=== PATIENT | female | born 1990 | race Caucasian/White ===

== ENCOUNTER 2018-12-13 15:32 | Observation (INO) | payer MEDICAID ==
[~2018-12-13] VITALS: Ht 152.4 cm; Wt 90.3 kg
== END 2018-12-13 18:10 | disposition home or self-care (01) ==
LOC: 8 EST LDRP 15:32
PROVIDERS: ADMIT Obstetrics & Gynecology; ATTEND Obstetrics & Gynecology
DX: O36.8130 Decreased fetal movements, third trimester, not applicable or unspecified (principal); Z3A.38 38 weeks gestation of pregnancy
CPT/HCPCS: 76815; 76818; 99281; G0378

== ENCOUNTER 2018-12-30 06:50 | Inpatient (IN) | payer MEDICAID ==
[~2018-12-30] VITALS: Ht 167.6 cm; Wt 91.6 kg
[2018-12-30] MEDS ORDERED: LACTATED RINGERS 1,000 ML IV SCH ×2 (07:30→10:00)
[2018-12-30] MEDS ORDERED: CARBOPROST TROMETHAMINE 250 MCG/ML AMPUL IM PRN (07:30)
[2018-12-30] MEDS ORDERED: METHYLERGONOVINE MALEATE 0.2 MG/ML IM PRN ×2 (07:30→17:00)
[2018-12-30] MEDS ORDERED: DEXT 5%/LR + PITOCIN 20UNITS/L 1,000 ML IV SCH ×2 (07:30→17:30)
[2018-12-30] MEDS ORDERED: LIDOCAINE HCL 1% 20ML VIAL (Pyxis) INJ INFIL SCH (07:30)
[2018-12-30] MEDS ORDERED: NALOXONE HCL 0.4 MG/ML 1ML VIAL IM PRN (07:30)
[2018-12-30] MEDS ORDERED: FERR-71 MT (09:41)
[2018-12-30] MEDS ORDERED: PNV1TABL50 MT (09:41)
[2018-12-30] MEDS ORDERED: BUTORPHANOL TARTRATE 2 MG/ML VIAL IV PRN (10:00)
[2018-12-30] MEDS ORDERED: PENICILLIN G POTASSIUM 5 MMU in DEXT 5% WATER 100 ML IV SCH (10:00)
[2018-12-30 12:16] LABS: BASOPHILS % 0.3 % (0.0-2.0); EOSINOPHILS % 0.3 % (0.0-5.0); HEMATOCRIT. 37.1 % (36.0-48.0); HEMOGLOBIN. 12.5 g/dL (12.0-16.0); LYMPHOCYTES % 9.6 % (20.0-50.0); MEAN CORPUSCULAR HEMOGLOBIN 29.9 pg (28.0-32.0); MEAN CORPUSCULAR VOLUME 88.8 fL (81.0-99.0); MEAN PLATELET VOLUME 11.4 fl (7.4-10.4); MONOCYTES % 5.9 % (2.0-8.0); NEUTROPHILS % 83.9 % (40.0-76.0); PLATELET 144 x1000/uL (130-400); RED BLOOD CELL COUNT 4.17 mill/uL (4.2-5.4); RED CELL DISTRIBUTION WIDTH 15.5 % (11.6-14.6)
[2018-12-30 12:46] LABS: INR 0.9; PARTIAL THROMBOPLASTIN TIME 27.2 sec (23.4-31.0); PROTHROMBIN TIME 9.4 sec (9.6-11.0)
[2018-12-30] MEDS ORDERED: MINERAL OIL 30ML BOTTLE PO SCH (13:30)
[2018-12-30] MEDS ORDERED: PENICILLIN G POTASSIUM 2.5 MMU in DEXTROSE 5% WATER 50 ML IV SCH (14:00)
[2018-12-30 14:50] VITALS: BP 103/61
[2018-12-30 15:20] VITALS: BP 108/63
[2018-12-30 16:26] LABS: HEPATITIS B SURFACE ANTIGEN NEGATIVE
[2018-12-30] MEDS ORDERED: ACETAMINOPHEN WITH CODEINE 300/30MG TABLET PO PRN (17:00)
[2018-12-30] MEDS ORDERED: RHO(D) IMMUNE GLOBULIN 300 MCG/SYR IM PRN (17:00)
[2018-12-30] MEDS ORDERED: DIPHENHYDRAMINE 25MG CAPSULE PO PRN (17:00)
[2018-12-30] MEDS ORDERED: BISACODYL 10MG SUPP PR PRN (17:00)
[2018-12-30] MEDS ORDERED: LANOLIN OINT 7GM TUBE TOP PRN (17:00)
[2018-12-30] MEDS ORDERED: IBUPROFEN 800MG TABLET PO PRN (17:00)
[2018-12-30] MEDS ORDERED: IBUPROFEN 400MG TABLET PO PRN (17:00)
[2018-12-30] MEDS: DOCUSATE SODIUM 100MG CAPSULE PO SCH (20:57)
[2018-12-30 22:00] VITALS: BP 108/70
[2018-12-30 22:01] LABS: CLARITY URINE CLOUDY (CLEAR); COLOR URINE AMBER (YELLOW); KETONES URINE 1+ (NEGATIVE); LEUKOCYTE ESTERASE URINE 1+ (NEGATIVE); NITRITE URINE NEGATIVE (NEGATIVE); OCCULT BLOOD URINE 3+ (NEGATIVE); PH URINE 6.5 (4.5-8.0); PROTEIN URINE NEGATIVE (NEGATIVE); UROBILINOGEN URINE 0.2 E.U./dL (0.2-1.0)
[2018-12-30 22:11] LABS: *AMPHETAMINES SCREEN URINE NEGATIVE (NEGATIVE); *BARBITURATES SCREEN URINE NEGATIVE (NEGATIVE); *BENZODIAZEPINES SCREEN URINE NEGATIVE (NEGATIVE); *COCAINE SCREEN URINE NEGATIVE (NEGATIVE); METHADONE URINE SCREEN NEGATIVE (NEGATIVE); OPIATES URINE SCREEN NEGATIVE (NEGATIVE)
[2018-12-30 22:12] LABS: CANNABINOID URINE SCREEN NEGATIVE (NEGATIVE); PHENCYCLIDINE URINE SCREEN NEGATIVE (NEGATIVE)
[2018-12-31 07:33] LABS: BASOPHILS % 0.3 % (0.0-2.0); EOSINOPHILS % 0.2 % (0.0-5.0); HEMATOCRIT. 32.2 % (36.0-48.0); HEMOGLOBIN. 10.8 g/dL (12.0-16.0); LYMPHOCYTES % 12.3 % (20.0-50.0); MEAN CORPUSCULAR HEMOGLOBIN 29.7 pg (28.0-32.0); MEAN CORPUSCULAR VOLUME 88.8 fL (81.0-99.0); MEAN PLATELET VOLUME 10.6 fl (7.4-10.4); MONOCYTES % 6.8 % (2.0-8.0); NEUTROPHILS % 80.4 % (40.0-76.0); PLATELET 133 x1000/uL (130-400); RED BLOOD CELL COUNT 3.63 mill/uL (4.2-5.4); RED CELL DISTRIBUTION WIDTH 15.4 % (11.6-14.6)
[2018-12-31 08:00] VITALS: BP 105/62
[2018-12-31] MEDS: PRENATAL VIT/FE FUMARATE/FA TABLET PO SCH (10:03)
[2018-12-31 16:00] VITALS: BP 99/61
[2018-12-31 20:00] VITALS: BP_SYST 103; BP_SYST 97; BP_DIAS 56; BP_DIAS 65
[2018-12-31] MEDS: DOCUSATE SODIUM 100MG CAPSULE PO SCH (22:11)
[2019-01-01 05:19] VITALS: BP 93/56
[2019-01-01 08:00] VITALS: BP 106/70
[2019-01-01] MEDS: PRENATAL VIT/FE FUMARATE/FA TABLET PO SCH (10:02)
== END 2019-01-01 11:05 | disposition home or self-care (01) | DRG 560 ==
LOC: 8 EST LDRP 06:50 → OBSVTOIN 06:50 → 8 EST LDRP 07:23 → 8EST 14:50
PROVIDERS: ADMIT Obstetrics & Gynecology; ATTEND Obstetrics & Gynecology
PROC: 0W8NXZZ Division of Female Perineum, External Approach (ICD-10-PCS; principal; 2018-12-30)
PROC: 10E0XZZ Delivery of Products of Conception, External Approach (ICD-10-PCS; 2018-12-30)
PROC: 10907ZC Drainage of Amniotic Fluid, Therapeutic from Products of Conception, Via Natural or Artificial Opening (ICD-10-PCS; 2018-12-30)
DX: O48.0 Post-term pregnancy (principal); D62 Acute posthemorrhagic anemia; Z37.0 Single live birth; Z3A.41 41 weeks gestation of pregnancy; O90.81 Anemia of the puerperium
CPT/HCPCS: 36415; 80305; 86592; 86703; 86762; 86850; 86900; 87340; 99281; G0378; J2540; J2590; J3490; J7060; J7120

== ENCOUNTER 2020-03-04 06:29 | Observation (INO) | payer MEDICAID ==
[~2020-03-04] VITALS: Ht 165.1 cm; Wt 88.9 kg
[~2020-03-04 06:29] MED LIST: FERR-71 MT; PNV1TABL50 MT
== END 2020-03-04 09:15 | disposition home or self-care (01) ==
LOC: INTOOBSV 06:29 → 8 EST LDRP 06:29
PROVIDERS: ADMIT Obstetrics & Gynecology; ATTEND Obstetrics & Gynecology
DX: O36.8330 Maternal care for abnormalities of the fetal heart rate or rhythm, third trimester, not applicable or unspecified (principal); O61.9 Failed induction of labor, unspecified; Z3A.39 39 weeks gestation of pregnancy
CPT/HCPCS: 59025; 76805; G0378; 99281

== ENCOUNTER 2020-03-11 07:22 | Inpatient (IN) | payer MEDICAID ==
[~2020-03-11] VITALS: Ht 165.1 cm; Wt 87.5 kg
[2020-03-11] MEDS: LACTATED RINGERS 1,000 ML IV SCH ×3 (08:52→21:37)
[2020-03-11 09:32] LABS: BASOPHILS % 0.4 % (0.0-2.0); EOSINOPHILS % 0.9 % (0.0-5.0); HEMATOCRIT. 37.5 % (36.0-48.0); HEMOGLOBIN. 12.6 g/dL (12.0-16.0); LYMPHOCYTES % 13.6 % (20.0-50.0); MEAN CORPUSCULAR HEMOGLOBIN 29.6 pg (28.0-32.0); MEAN PLATELET VOLUME 10.9 fl (7.4-10.4); MONOCYTES % 6.6 % (2.0-8.0); NEUTROPHILS % 78.5 % (40.0-76.0); PLATELET 146 x1000/uL (130-400); RED BLOOD CELL COUNT 4.26 mill/uL (4.2-5.4); RED CELL DISTRIBUTION WIDTH 15.6 % (11.6-14.6)
[2020-03-11 09:34] LABS: CLARITY URINE CLEAR (CLEAR); COLOR URINE YELLOW (YELLOW); KETONES URINE 1+ (NEGATIVE); LEUKOCYTE ESTERASE URINE 1+ (NEGATIVE); NITRITE URINE NEGATIVE (NEGATIVE); OCCULT BLOOD URINE NEGATIVE (NEGATIVE); PROTEIN URINE NEGATIVE (NEGATIVE); UROBILINOGEN URINE 0.2 E.U./dL (0.2-1.0)
[2020-03-11] MEDS ORDERED: DEXT 5%/LR + PITOCIN 20UNITS/L 1,000 ML IV SCH (09:38)
[2020-03-11] MEDS ORDERED: BUTORPHANOL TARTRATE 2 MG/ML VIAL IV PRN (09:45)
[2020-03-11] MEDS ORDERED: NALOXONE HCL 0.4 MG/ML 1ML VIAL IM PRN (09:45)
[2020-03-11] MEDS ORDERED: LIDOCAINE HCL 1% 20ML VIAL (Pyxis) INJ INFIL SCH (09:45)
[2020-03-11] MEDS ORDERED: MISOPROSTOL 100MCG TABLET VG SCH (09:45)
[2020-03-11] MEDS ORDERED: METHYLERGONOVINE MALEATE 0.2 MG/ML IM PRN (09:45)
[2020-03-11 09:47] LABS: INR 0.9; PARTIAL THROMBOPLASTIN TIME 27.6 sec (23.4-31.0); PROTHROMBIN TIME 9.8 sec (9.6-11.0)
[2020-03-11 09:52] LABS: *AMPHETAMINES SCREEN URINE NEGATIVE (NEGATIVE); *BARBITURATES SCREEN URINE NEGATIVE (NEGATIVE); *BENZODIAZEPINES SCREEN URINE NEGATIVE (NEGATIVE); METHADONE URINE SCREEN NEGATIVE (NEGATIVE); OPIATES URINE SCREEN NEGATIVE (NEGATIVE)
[2020-03-11 09:53] LABS: *COCAINE SCREEN URINE NEGATIVE (NEGATIVE); CANNABINOID URINE SCREEN NEGATIVE (NEGATIVE); PHENCYCLIDINE URINE SCREEN NEGATIVE (NEGATIVE)
[2020-03-11] MEDS ORDERED: MINERAL OIL 30ML BOTTLE TOP SCH (10:45)
[2020-03-11 13:11] LABS: HEPATITIS B SURFACE ANTIGEN NEGATIVE
[2020-03-12] MEDS ORDERED: DEXT 5%/LR + PITOCIN 20UNITS/L 1,000 ML IV SCH (00:02)
[2020-03-12] MEDS ORDERED: METHYLERGONOVINE MALEATE 0.2 MG/ML IM PRN (00:15)
[2020-03-12] MEDS ORDERED: IBUPROFEN 400MG TABLET PO PRN (00:15)
[2020-03-12] MEDS ORDERED: RHO(D) IMMUNE GLOBULIN 300 MCG/SYR IM PRN (00:15)
[2020-03-12] MEDS ORDERED: DIPHENHYDRAMINE 25MG CAPSULE PO PRN (00:15)
[2020-03-12] MEDS ORDERED: LANOLIN OINT 7GM TUBE TOP PRN (00:15)
[2020-03-12] MEDS: IBUPROFEN 800MG TABLET PO PRN ×3 (02:55→17:50)
[2020-03-12 08:00] VITALS: BP 96/53
[2020-03-12] MEDS: PRENATAL VIT/FE FUMARATE/FA TABLET PO SCH (09:22)
[2020-03-12 17:00] VITALS: BP 94/60
[2020-03-12 20:00] VITALS: BP 108/56
[2020-03-13 04:00] VITALS: BP 109/69
[2020-03-13] MEDS: IBUPROFEN 800MG TABLET PO PRN (04:25)
[2020-03-13 06:13] LABS: BASOPHILS % 0.6 % (0.0-2.0); EOSINOPHILS % 1.8 % (0.0-5.0); HEMATOCRIT. 30.7 % (36.0-48.0); HEMOGLOBIN. 10.4 g/dL (12.0-16.0); MEAN CORPUSCULAR VOLUME 88.8 fL (81.0-99.0); MEAN PLATELET VOLUME 10.6 fl (7.4-10.4); MONOCYTES % 6.2 % (2.0-8.0); NEUTROPHILS % 68.4 % (40.0-76.0); PLATELET 134 x1000/uL (130-400); RED BLOOD CELL COUNT 3.46 mill/uL (4.2-5.4); RED CELL DISTRIBUTION WIDTH 16.1 % (11.6-14.6)
[2020-03-13] MEDS ORDERED: NORE0.3520 MT (06:53)
[2020-03-13] MEDS ORDERED: IBUP-2030 PO (06:53)
[2020-03-13] MEDS ORDERED: FERR325T6 MT (06:55)
[2020-03-13] MEDS ORDERED: BISACODYL 10MG SUPP PR NR (07:30)
[2020-03-13] MEDS: PRENATAL VIT/FE FUMARATE/FA TABLET PO SCH (09:32)
== END 2020-03-13 13:00 | disposition home or self-care (01) | DRG 560 ==
LOC: 8 EST LDRP 07:22 → 8 EST A/PP 03-12 03:22
PROVIDERS: ADMIT Obstetrics & Gynecology; ATTEND Obstetrics & Gynecology
PROC: 10E0XZZ Delivery of Products of Conception, External Approach (ICD-10-PCS; principal; 2020-03-11)
PROC: 0HQ9XZZ Repair Perineum Skin, External Approach (ICD-10-PCS; 2020-03-11)
PROC: 3E0P7VZ Introduction of Hormone into Female Reproductive, Via Natural or Artificial Opening (ICD-10-PCS; 2020-03-11)
DX: O48.0 Post-term pregnancy (principal); O99.03 Anemia complicating the puerperium; O70.0 First degree perineal laceration during delivery; Z3A.40 40 weeks gestation of pregnancy; Z37.0 Single live birth
CPT/HCPCS: 36415; 80305; 81003; 85025; 86592; 86703; 86762; 86850; 86900; 87340; J0595; J2590; J3490; J7120